=== PATIENT | female | born 1995 | race Caucasian/White ===

== ENCOUNTER 2017-11-15 07:17 | Emergency (ER) | payer OTHER ==
[~2017-11-15] VITALS: Ht 160 cm; Wt 78.0 kg
[2017-11-15 07:26] VITALS: Ht 160 cm; Wt 78.0 kg
[2017-11-15 07:58] VITALS: BP 126/42
== END 2017-11-15 07:58 | disposition home or self-care (01) ==
LOC: ED 07:17
DX: R50.9 Fever, unspecified (principal); R21 Rash and other nonspecific skin eruption; R05 Cough
CPT/HCPCS: Q0162

== ENCOUNTER 2018-01-03 01:54 | Emergency (ER) | payer OTHER ==
[~2018-01-03] VITALS: Ht 160 cm; Wt 78.9 kg
[2018-01-03 02:48] VITALS: BP 143/104
== END 2018-01-03 02:48 | disposition home or self-care (01) ==
LOC: ED 01:54
DX: K08.89 Other specified disorders of teeth and supporting structures (principal); K04.7 Periapical abscess without sinus